=== PATIENT | male | born 1985 | race Caucasian/White ===

== ENCOUNTER 2020-07-15 10:57 | Emergency (ER) | payer BC, OTHER ==
[2020-07-15] MEDS ORDERED: Prochlorperazine 10 MG/2 ML SDV IVPUSH ONE (11:10)
[2020-07-15] MEDS ORDERED: Sodium Chloride 0.9% 10 ML Syringe FLUSH PRN (11:10)
[2020-07-15] MEDS ORDERED: Acetaminophen 500 MG Tab PO ONE (11:10)
[2020-07-15] MEDS ORDERED: Sodium Chloride 0.9% 2.5 ML Syringe FLUSH PRN (11:10)
--- NOTE | 2020-07-15 11:17 | EDM.PDOC ---
ED HPI GENERAL MEDICAL PROBLEM - General Chief Complaint: Headache Stated Complaint: INSTANT HEADACHE PAIN IN BACK OF EYE Time Seen by Provider: 07/15/20 11:03 - History of Present Illness INITIAL COMMENTS - FREE TEXT/NARRATIVE: HISTORY AND PHYSICAL: History of present illness: This 35-year-old male with a past medical history of gingivitis, dental caries, and BMI greater than 48 presents to the emergency department complaining of sudden onset headache maximal intensity that began about an hour ago. Started when he was smoking. He had a similar episode on Wednesday when he was lifting weights had a sudden onset of headache at that time and was maximal intensity and lasted about 20 minutes. It was so severe it made him feel like he was going to pass out. Today's headache has slowly decreased in pain until he has an aching type pain that is moderate behind his eyes. He did not lose consciousness. He has not vomited but he is nauseated. Denies any fevers. He is profusely diaphoretic but says he sweats a lot given his size. Review of systems: A 10-point review of systems, other than pertinent positives and negatives as stated per HPI, is otherwise negative. Past medical history: As per history of present illness and as reviewed below otherwise noncontributory. Surgical history: As per history of present illness and as reviewed below otherwise noncontributory. Social history: No reported history of drug or alcohol abuse. Family history: As per history of present illness and as reviewed below otherwise noncontributory. Physical exam: VITAL SIGNS: Reviewed. GENERAL: Appears moderately ill and diaphoretic. Complaining of a headache and keeping his eyes closed at times. HEAD: No signs of head trauma. EYES: Pupils are equal. Extraocular motions intact. EARS: Hearing grossly intact. MOUTH: Necrotizing gingivitis is present. Multiple dental caries. Equal facial symmetry. NECK: No adenopathy, no JVD. CHEST: Chest with clear breath sounds bilaterally. No wheezes, rales, or rhonchi. CARDIAC: Regular rate and rhythm. Normal S1 and S2, without murmurs, gallops, or rubs. VASCULAR: Peripheral pulses normal and equal in all extremities. ABDOMEN: Soft, without detectable tenderness. No sign of distention. No rebound or guarding, and no masses palpated. MUSCULOSKELETAL: Good range of motion of all major joints. Extremities without clubbing, cyanosis or edema. NEUROLOGIC EXAM: Alert and oriented x 3. No focal sensory or motor deficits. Speech normal. Follows commands. Walks on heels and tippy toes without difficulty. Cranial nerves II through XII are intact. PSYCHIATRIC: Mood normal. SKIN: No rash or lesions. Initial Differential Diagnosis & Plan: Differential diagnosis includes meningitis, subarachnoid hemorrhage, trauma, mass lesion, carbon dioxide of exposure, cavernous sinus venous thrombosis, and pseudotumor cerebri. There is no neck stiffness or fever to suggest meningitis. There was no evidence of carbon monoxide exposure. There is not a history of hypercoagulability or cranial nerve deficits to suggest cavernous venous thrombosis. The vision is normal and the duration is not long enough to consider pseudotumor cerebri. There is no evidence of trauma to suggest epidural hematoma or subdural hematoma. The onset was intense and severe. The [place] subarachnoid hemorrhage rule was considered and the following criteria were evaluated Age greater than or equal to 40 Neck pain or stiffness -mild Witnessed loss of consciousness - not present Onset during exertion -present and endorses this [place] headache (peaking pain within one second) -present and endorses this Limited neck flexion on exam - not present Cannot rule out subarachnoid hemorrhage with this criteria. I will obtain a head CT. No fever to suggest meningitis. I will obtain labs to evaluate for underlying occult disease. Highly suspicious for subarachnoid hemorrhage. CT. Given the patient's body habitus lumbar puncture will be quite difficult. Definitive disposition and diagnosis as appropriate pending reevaluation and review of above. headache Pain Score (Numeric/FACES): 7 - Related Data Allergies Allergy/AdvReac Type Severity Reaction Status Date / Time No Known Allergies Allergy Verified 07/15/20 11:10 Home Meds: Home Meds Chlorhexidine Gluconate 0.12% [Peridex 0.12% Rinse] 473 ml MM TID #473 ml 07/15/20 [Rx] Clindamycin HCl 300 mg PO TID 7 Days #21 capsule 07/15/20 [Rx] Cyclobenzaprine [Flexeril] 10 mg PO ASDIRECTED PRN 07/15/20 [History] Ertugliflozin Pidolate [Steglatro] 15 mg PO DAILY 07/15/20 [History] Naproxen Sodium 550 mg PO ASDIRECTED PRN 07/15/20 [History] Prochlorperazine Maleate [Compazine] 10 mg PO TID PRN #30 tablet 07/15/20 [Rx] amLODIPine [Norvasc] 5 mg PO DAILY 07/15/20 [History] metFORMIN [Glucophage XR] 1,000 mg PO DAILY 07/15/20 [History] Past Medical History - Past Health History Medical/Surgical History: Denies Medical/Surgical History Cardiovascular History: Reports: Hypertension Endocrine/Metabolic History: Reports: Obesity/BMI 30+ Social & Family History - Family History Cardiac: Reports: Hypertension, [place] Neurological: Reports: CVA - Caffeine Use Caffeine Use: Reports: None ED ROS GENERAL - Review of Systems Review Of Systems: See Below (noted) - Physical Exam Exam: See Below (noted) Course - Vital Signs Last Recorded V/S: Last Vital Signs Temp 95.1 F L 07/15/20 11:06 Pulse 119 H 07/15/20 11:06 Resp 18 07/15/20 11:06 BP 160/106 H 07/15/20 11:06 Pulse Ox 95 07/15/20 11:06 - Orders/Labs/Meds Orders: Active Orders 24 hr Category Date Time Status Head wo Cont [CT] Stat Exams 07/15/20 11:11 Taken Sodium Chloride 0.9% [Saline Flush] Med 07/15/20 11:10 Active 10 ml FLUSH ASDIRECTED PRN Sodium Chloride 0.9% [Saline Flush] Med 07/15/20 11:10 Active 2.5 ml FLUSH ASDIRECTED PRN Saline Lock Insert [OM.PC] Stat Oth 07/15/20 11:10 Ordered Medication Orders Sodium Chloride (Saline Flush) 10 ml FLUSH ASDIRECTED PRN PRN Reason: Keep Vein Open Last Admin: 07/15/20 11:15 Dose: 10 ml Documented by: LILIAN Sodium Chloride (Saline Flush) 2.5 ml FLUSH ASDIRECTED PRN PRN Reason: Keep Vein Open Last Admin: 07/15/20 11:15 Dose: 2.5 ml Documented by: LILIAN Labs: Laboratory Tests 07/15/20 07/15/20 07/15/20 Range/Units 11:16 11:44 11:44 WBC 11.00 (4.0-11.0) K/uL RBC 5.98 H (4.50-5.90) M/uL Hgb 19.1 H (13.0-17.0) g/dL Hct 53.0 H (38.0-50.0) % MCV 88.6 (80.0-98.0) fL MCH 31.9 (27.0-32.0) pg MCHC 36.0 (31.0-37.0) g/dL RDW Std Deviation 44.5 (28.0-62.0) fl RDW Coeff of Juan 14 (11.0-15.0) % Plt Count 250 (150-400) K/uL MPV 11.10 (7.40-12.00) fL Neut % (Auto) 57.1 (48.0-80.0) % Lymph % (Auto) 31.4 (16.0-40.0) % Stevens % (Auto) 9.6 (0.0-15.0) % Eos % (Auto) 1.5 (0.0-7.0) % Baso % (Auto) 0.4 (0.0-1.5) % Neut # (Auto) 6.3 H (1.4-5.7) K/uL Lymph # (Auto) 3.5 H (0.6-2.4) K/uL Stevens # (Auto) 1.1 H (0.0-0.8) K/uL Eos # (Auto) 0.2 (0.0-0.7) K/uL Baso # (Auto) 0.0 (0.0-0.1) K/uL Nucleated RBC % 0.0 /100WBC Nucleated RBCs # 0 K/uL INR 1.05 Sodium 139 (136-148) mmol/L Potassium 4.3 (3.5-5.1) mmol/L Chloride 102 (98-107) mmol/L Carbon Dioxide 26.9 (21.0-32.0) mmol/L BUN 12 (7.0-18.0) mg/dL Creatinine 1.0 (0.8-1.3) mg/dL Est Cr Clr Drug Dosing 117.63 mL/min Estimated GFR (MDRD) > 60.0 ml/min Glucose 140 H (74-106) mg/dL Calcium 9.1 (8.5-10.1) mg/dL Total Bilirubin 0.5 (0.2-1.0) mg/dL AST 22 (15-37) IU/L ALT 49 (14-63) IU/L Alkaline Phosphatase 56 (46-116) U/L Total Protein 7.4 (6.4-8.2) g/dL Albumin 4.1 (3.4-5.0) g/dL Globulin 3.3 (2.6-4.0) g/dL Albumin/Globulin Ratio 1.2 (0.9-1.6) Meds: Medications Generic Name Dose Route Start Last Admin Trade Name Freq PRN Reason Stop Dose Admin Sodium Chloride 10 ml 07/15/20 11:10 07/15/20 11:15 Saline Flush FLUSH 10 ml ASDIRECTED PRN Administration Keep Vein Open Sodium Chloride 2.5 ml 07/15/20 11:10 07/15/20 11:15 Saline Flush FLUSH 2.5 ml ASDIRECTED PRN Administration Keep Vein Open Discontinued Medications Generic Name Dose Route Start Last Admin Trade Name Freq PRN Reason Stop Dose Admin Acetaminophen 1,000 mg 07/15/20 11:10 07/15/20 11:15 Tylenol Extra Strength PO 07/15/20 11:11 1,000 mg ONETIME ONE Administration Prochlorperazine Edisylate 10 mg 07/15/20 11:10 07/15/20 11:15 Compazine IVPUSH 07/15/20 11:11 10 mg ONETIME ONE Administration - Re-Assessments/Exams Free Text/Narrative Re-Assessment/Exam: 07/15/20 12:[address] results discussed with patient. Discussed that the gold standard for subarachnoid hemorrhage rule out is a lumbar puncture. The patient needs to go get his family member/son or daughter and politely declined because he is feeling much better and does not want a spinal tap. He understands the risks, consequences and potential negative outcomes of refusing this. He has been invited to come back. He signed an AMA to release us from liability. My diagnostic impression: 1. Headache 2. History of morbid obesity 3. Trench mouth I will provide the patient with Peridex for his trench mouth and clindamycin. I will prescribe Compazine for him as an outpatient in case his headaches come back and have asked him and encouraged him to follow-up with his primary care doctor for an MRI as an outpatient. Departure - Departure Time of Disposition: 12:11 Disposition: Home, Self-Care 01 Clinical Impression: Headache, Trench mouth - Discharge Information *PRESCRIPTION DRUG MONITORING PROGRAM REVIEWED*: Not Applicable *COPY OF PRESCRIPTION DRUG MONITORING REPORT IN PATIENT VIVIAN: Not Applicable Instructions: General Headache Without Cause Referrals: Joe Foote MD [Primary Care Provider] - Forms: ED Department Discharge Additional Instructions: The following information is given to patients seen in the emergency department who are being discharged to home. This information is to outline your options for follow-up care. We provide all patients seen in our emergency department with a follow-up referral. The need for follow-up, as well as the timing and circumstances, are variable depending upon the specifics of your emergency department visit. If you don't have a primary care physician on staff, we will provide you with a referral. We always advise you to contact your personal physician following an emergency department visit to inform them of the circumstance of the visit and for follow-up with them and/or the need for any referrals to a consulting specialist. The emergency department will also refer you to a specialist when appropriate. This referral assures that you have the opportunity for follow-up care with a specialist. All of these measure are taken in an effort to provide you with optimal care, which includes your follow-up. Thank you for coming to the [facility] urgency department for your care today. It was Dr. Marcus's pleasure to take care of you. Please follow-up with your doctor. I recommend an MRI as an outpatient. You politely refused the lumbar puncture which is the gold standard test to rule out subarachnoid hemorrhage which is a type of bleeding in the brain that comes from aneurysms. If you would like this test please return. We are always happy to see you. Under all circumstances we always encourage you to contact your private physician who remains a resource for coordinating your care. When calling for follow-up care, please make the office aware that this follow-up is from your recent emergency room visit. If for any reason you are refused follow-up, please contact the [facility] Emergency Department at and asked to speak to the emergency department charge nurse. Sepsis Event Note (ED) - Evaluation Sepsis Screening Result: No Definite Risk - Focused Exam Vital Signs: Vital Signs Temp Pulse Resp BP Pulse Ox 07/15/20 11:06 95.1 F L 119 H 18 160/106 H 95 - My Orders Last 24 Hours: My Active Orders 07/15/20 11:10 Sodium Chloride 0.9% [Saline Flush] 10 ml FLUSH ASDIRECTED PRN Sodium Chloride 0.9% [Saline Flush] 2.5 ml FLUSH ASDIRECTED PRN Saline Lock Insert [OM.PC] Stat 07/15/20 11:11 Head wo Cont [CT] Stat - Assessment/Plan Last 24 Hours: My Active Orders 07/15/20 11:10 Sodium Chloride 0.9% [Saline Flush] 10 ml FLUSH ASDIRECTED PRN Sodium Chloride 0.9% [Saline Flush] 2.5 ml FLUSH ASDIRECTED PRN Saline Lock Insert [OM.PC] Stat 07/15/20 11:11 Head wo Cont [CT] Stat
[2020-07-15 12:09] LABS: BLOOD UREA NITROGEN,BUN 12 mg/dL (7.0-18.0); CARBON DIOXIDE,CO2 26.9 mmol/L (21.0-32.0); CHLORIDE,CL 102 mmol/L (98-107); GLUCOSE RANDOM 140 mg/dL (74-106); POTASSIUM,K 4.3 mmol/L (3.5-5.1); SODIUM,NA 139 mmol/L (136-148)
[2020-07-15 12:14] VITALS: BP 153/98; PULSE 101
--- NOTE | 2020-07-15 12:16 | CT ---
Head CT Technique: Multiple axial sections through the brain were obtained. Intravenous contrast was not utilized. Comparison: No prior intracranial imaging is available. Findings: Ventricles along with basal cisterns and sulci over the convexities are within normal limits for the patient's age. No abnormal parenchymal densities are seen. No evidence of intracranial hemorrhage. No extra-axial blood is seen. No midline shift or mass effect is seen. Bone window settings were reviewed which shows mucosal thickening and a retention cyst within the inferior right maxillary sinus most likely chronic. No acute calvarial finding is seen. Impression: 1. Chronic right maxillary sinus findings as noted above. 2. Nothing acute is appreciated on noncontrast head CT exam. Diagnostic code #2 This report was dictated in MDT
== END 2020-07-15 12:17 | disposition home or self-care (01) ==
LOC: MW.ED 10:57
DX: R51 Headache (principal); A69.1 Other Vincent's infections; I10 Essential (primary) hypertension; E66.9 Obesity, unspecified; Z79.899 Other long term (current) drug therapy; Z68.42 Body mass index [BMI] 45.0-49.9, adult
CPT/HCPCS: 36415; 70450; 80053; 85025; 85610; 96374; 99284; A9270; J0780

== ENCOUNTER 2021-09-25 19:54 | Emergency (ER) | payer BC ==
[2021-09-25] MEDS ORDERED: Ketorolac 15 MG/ML SDV IVPUSH ONE (20:39)
[2021-09-25] MEDS ORDERED: Dexamethasone 10 MG/ML SDV IVPUSH ONE (20:40)
--- NOTE | 2021-09-25 21:16 | CR ---
INDICATION: Sore throat, trouble breathing. TECHNIQUE: Soft tissue neck 2 view. COMPARISON: None. FINDINGS: The airway is patent and normal. The retropharyngeal soft tissues are normal. No obvious masses. The visualized cervical spine demonstrates no significant findings. There is some rotation as well as mild blur on the lateral view. Epiglottis is suboptimally seen. IMPRESSION: 1. Epiglottis is suboptimally seen. This appears mildly prominent, however this is likely exacerbated by some rotation of the anterior aspect of the neck as well as blur on the film. Suggest repeat lateral view. 2. Otherwise unremarkable soft tissue neck series. Dictated by Bruce Snow MD @ 09/25/2021 9:16:02 PM (Electronically Signed)
--- NOTE | 2021-09-25 22:07 | CR ---
INDICATION: Sore throat, difficulty breathing. Repeat lateral view recommended. TECHNIQUE: Lateral soft tissue neck performed at 9:41 p.m. Comparison: : Lateral soft tissue neck performed at 9 p.m. FINDINGS: There is abnormal thickening the epiglottis and effacement of the vallecula consistent with epiglottitis. The adenoid tissue and prevertebral soft tissues are of normal thickness. There is no evidence of gas or radiopaque foreign body within the soft tissues. The hyoid bone, cricoid, thyroid cartilages appear normal. IMPRESSION: Radiographic findings consistent with epiglottitis. Dictated by Manjeet Lama MD @ 09/25/2021 10:06:54 PM (Electronically Signed)
[2021-09-25] MEDS ORDERED: cefTRIAXone 1 GM in Premix Bag 1 BAG IV ONE (22:11)
[2021-09-25] MEDS ORDERED: Lactated Ringers 1,000 ML IV ONE (22:11)
[2021-09-25] MEDS ORDERED: methylPREDNISolone Sodium Succinate 125 MG/2 ML SDV IVPUSH ONE (22:14)
[2021-09-25] MEDS ORDERED: Sodium Chloride 0.9% Inhalation Soln 3 ML Neb INH PRN (22:21)
[2021-09-25] MEDS ORDERED: Racepinephrine 2.25% 0.5 ML Neb Soln NEB ONE (22:21)
--- NOTE | 2021-09-25 22:51 | EDM.PDOC ---
ED HPI GENERAL MEDICAL PROBLEM - General Chief Complaint: ENT Problem Stated Complaint: SOB Time Seen by Provider: 09/25/21 19:59 - History of Present Illness INITIAL COMMENTS - FREE TEXT/NARRATIVE: CHIEF COMPLAINT(S): Sore throat HISTORY OF PRESENT ILLNESS: This is a 36-year-old man with a past medical history of obesity, diabetes mellitus, hypertension who comes to the emergency department with a chief complaint of sore throat. Patient states that for the last 2 days he has been experiencing a sore throat with bilateral ear pain which she rates currently as 5-7 out of 10 without any radiation. He states that for the last couple hours he has been having difficulty breathing and is coughing because he feels like there is secretions in his throat. He denies any drooling, inability to open mouth. He denies any recent exposures. He states that it is difficult to swallow. In addition he states that his voice sounds different. He tried naproxen without any relief. There are no exacerbating factors. REVIEW OF SYSTEMS: Constitutional: Denies fever, chills. Eyes: Denies eye pain Ears, Nose, Mouth, & Throat: Positive for sore throat, trouble swallowing. Denies drooling, trismus, stridor Cardiovascular: Denies chest pain Respiratory: Denies shortness of breath Gastrointestinal: Denies Nausea, vomiting, diarrhea, hematochezia. Genitourinary: Denies hematuria Skin:Denies a rash MSK: Denies joint pain Neurological: Denies blurred vision Psychiatric: Denies depression PAST MEDICAL HISTORY: As per history of present illness and as reviewed below otherwise noncontributory. SURGICAL HISTORY: As per history of present illness and as reviewed below otherwise noncontributory. SOCIAL HISTORY: As per history of present illness and as reviewed below otherwise noncontributory. FAMILY HISTORY: As per history of present illness and as reviewed below otherwise noncontributory. EXAMINATION OF ORGAN SYSTEMS/BODY AREAS: Constitutional: Blood pressure is 177/109, heart rate 112, respiratory rate 18 with an oxygen saturation 97% on room air. Temperature 35.7 temporal General: Morbidly obese man who does not appear to be in acute distress Psychiatric: Appropriate mood and affect. Eyes: No scleral icterus or conjunctival erythema ENMT: Moist mucous membranes. No pharyngeal erythema there are no tonsillar exudates or swelling. Uvula was midline. Mild muffled voice. No drooling, trismus, stridor. No anterior posterior cervical lymphadenopathy. Cardiovascular: Regular, rate, and rhythm. No gallops, murmurs, or rubs. Bilateral upper extremity pulses symmetric and intact. No peripheral edema. No JVD. Respiratory: Lungs clear to auscultation bilaterally. No wheezes, rales, or rhonchi. Gastrointestinal: Soft, non-tender, non-distended. Normoactive bowel sounds Genitourinary: No suprapubic tenderness Musculoskeletal: Normal range of motion. Skin: No lesions or abrasions. Neurological: Alert, GCS 15 MEDICAL DECISION MAKING AND COURSE IN THE ED WITH INTERPRETATION/REVIEW OF D IAGNOSTIC STUDIES: This is a 36-year-old man with a past medical history of morbid obesity, diabetes mellitus and hypertension who comes to the emergency department with 2 days of sore throat with increased pain, sensation of pulling of secretions in the back of his throat and difficulty swallowing and sensation of breathing who is tachycardic and hypertensive but appears nontoxic. At this time we will provide the patient with Toradol, Decadron and obtain a neck soft tissue x-ray. Will obtain a strep a swab. We will reevaluate after imaging DDx: Retropharyngeal abscess, viral pharyngitis, epiglottitis The radiological images were viewed by myself along with reading the report from the radiologist. Soft tissue neck x-ray does not reveal any evidence of retropharyngeal abscess with a suboptimal view of the epiglottis. Recommend lateral x-ray repeat. After imaging I did discuss that I would like to obtain a repeat lateral x-ray. He was amenable to this plan. Patient continues to remain stable. The radiological images were viewed by myself along with reading the report from the radiologist. Repeat lateral x ray reveals acute epiglottis After imaging I did contact [facility] and spoke with Dr. Jones who recommended Decadron, clindamycin, racemic epinephrine and intubation for airway protection and ICU admission. At this time [facility] does not h ave any ICU beds available. Therefore I did discuss the plan with the patient. At this time he would like to see his prior to being intubated. I did discuss risks and benefits and consent the patient verbally. He understands that there is a possibility of needing a surgical airway. He did express verbal consent for this also. I did contact anesthesia to intubate the patient and I did contact Dr. Perez will be at bedside just in case a cricothyrotomy as needed. Given the patient's tachycardia, temperature less than 36, and known epiglottitis I did obtain blood cultures and septic work-up. We will start the patient on clindamycin. At this time we will provide the patient 1 L of lactated Ringer's bolus and start maintenance fluids. The patient's blood pressure is normal and we will reevaluate after lactic acid has been resulted. Cardiac monitoring at this time did reveal sinus tachycardia and pulse oximetry with good waveform was 98 to 97% on room air. I contacted [facility] in [place] and spoke with Dr. Mayfield who accepted the patient for transfer. Laboratory: CBC reveals a leukocytosis of 12.78 otherwise unremarkable. INR is normal. CMP reveals hyponatremia at 135, hyperglycemia 168, hypocalcemia at 8.4 and mild elevation in ALT at 69 otherwise unremarkable. Lactic acid is 1.3. Covid is negative. The patient's blood pressure continues to be normal, lactic acid is 1.3 therefore no additional fluid bolus will be administered. We will start the patient on maintenance fluids at 150 cc/h. The patient has received all appropriate medications, anesthesia and Dr. Perez are at bedside. The patient was intubated on the second attempt by anesthesia without any complications. To 100 mcg of fentanyl were provided to the patient for pain control and the patient was started on a propofol drip which will be titrated appropriately. Post intubation x-ray was obtained. DISPOSITION: Patient was transferred via fixed wing to [facility] in stable yet serious condition CONDITION: Serious PROCEDURES: Cardiac monitoring interpretation, pulse oximetry interpretation FINAL IMPRESSION(S)/DIAGNOSES: 1. Acute epiglottitis 2. Intubation secondary to airway protection Critical Care Procedure Note Authorized and performed by: Isiah Montemayor M.D. Critical Care Time: 74 minutes Due to a high probability of clinically significant, life threatening deterioration, the patient required my highest level of preparedness to intervene emergently and I personally spent this critical care time directly and personally managing the patient. This critical care time included obtaining a history, examining the patient, pulse oximetry; ordering and review of studies; arranging urgent treatment with development of a management plan; evaluation of a patients reponse to treatment; frequent assessment; and discussions with other providers. This critical care time was performed to assess and manage the high probability of imminent, life threatening deterioration that could result in multiorgan failure. It was exclusive of separate billable procedures and treating other patients. Please see MDM section and rest of the note for further information on patient assessment and treatment. Please see MDM section and rest of the note for further information on patient assessment and treatment. Isiah Montemayor M.D. Bilateral Throat Pain Score (Numeric/FACES): 7 - Related Data Allergies Allergy/AdvReac Type Severity Reaction Status Date / Time No Known Allergies Allergy Verified 09/25/21 19:55 Home Meds: Home Meds Ertugliflozin Pidolate [Steglatro] 15 mg PO DAILY 07/15/20 [History] amLODIPine [Norvasc] 5 mg PO DAILY 07/15/20 [History] metFORMIN [Glucophage XR] 1,000 mg PO DAILY 07/15/20 [History] Past Medical History - Past Health History Medical/Surgical History: Denies Medical/Surgical History HEENT History: Reports: None Cardiovascular History: Reports: Hypertension Respiratory History: Reports: None Gastrointestinal History: Reports: None Genitourinary History: Reports: None Musculoskeletal History: Reports: Back Pain, Chronic Neurological History: Reports: None Psychiatric History: Reports: None Endocrine/Metabolic History: Reports: Obesity/BMI 30+ Hematologic History: Reports: None Immunologic History: Reports: None Oncologic (Cancer) History: Reports: None Dermatologic History: Reports: None - Infectious Disease History Infectious Disease History: Reports: Chicken Pox - Past Surgical History Head Surgeries/Procedures: Reports: None HEENT Surgical History: Reports: None Cardiovascular Surgical History: Reports: None Respiratory Surgical History: Reports: None GI Surgical History: Reports: None Male Surgical History: Reports: None Endocrine Surgical History: Reports: None Neurological Surgical History: Reports: None Musculoskeletal Surgical History: Reports: None Oncologic Surgical History: Reports: None Dermatological Surgical History: Reports: None Social & Family History - Family History Family Medical History: No Pertinent Family History Cardiac: Reports: Hypertension, [place] Neurological: Reports: CVA - Tobacco Use Tobacco Use Status *Q: Former Tobacco User Used Tobacco, but Quit: Yes Month/Year Tobacco Last Used: 12 months - Caffeine Use Caffeine Use: Reports: None - Recreational Drug Use Recreational Drug Use: No ED ROS GENERAL - Review of Systems Review Of Systems: See Below ED EXAM, GENERAL - Physical Exam Exam: See Below Course - Vital Signs Last Recorded V/S: Last Vital Signs Temp 35.7 C L 09/25/21 19:56 Pulse 120 H 09/25/21 23:26 Resp 18 09/25/21 23:26 BP 180/93 H 09/25/21 23:26 Pulse Ox 100 09/25/21 23:26 - Orders/Labs/Meds Orders: Active Orders 24 hr Category Date Time Status RASS Sedation Scale [RC] ASDIRECTED Care 09/25/21 23:15 Active RT Aerosol Therapy [RC] ASDIRECTED Care 09/25/21 22:22 Active Chest 1V Frontal [CR] Stat Exams 09/25/21 22:57 Ordered Sodium Chloride 0.9% Med 09/25/21 22:21 Active 3 ml INH ASDIRECTED PRN propofoL [Diprivan 100 ML] 100 ml Med 09/25/21 23:15 Active IV TITRATE Desired Level of Sedation (RASS) [AST] Click to Edit Oth 09/25/21 23:15 Ordered Medication Orders Propofol (Diprivan 100 Ml) 100 mls @ 5.157 mls/hr IV TITRATE TELLO; Protocol Last Admin: 09/26/21 00:02 Dose: 5 mcg/kg/min, 5.157 mls/hr Documented by: STACIA Sodium Chloride (Sodium Chloride 0.9% Inhalation Soln 3 Ml Neb) 3 ml INH ASDIRECTED PRN PRN Reason: mix with racepinephrine neb Last Admin: 09/25/21 22:44 Dose: 3 ml Documented by: STACIA Labs: Laboratory Tests 09/25/21 09/25/21 09/25/21 Range/Units 19:59 19:59 20:47 WBC 12.78 H (4.0-11.0) K/uL RBC 5.48 (4.50-5.90) M/uL Hgb 16.5 (13.0-17.0) g/dL Hct 46.4 (38.0-50.0) % MCV 84.7 (80.0-98.0) fL MCH 30.1 (27.0-32.0) pg MCHC 35.6 (31.0-37.0) g/dL RDW Std Deviation 41.7 (28.0-62.0) fl RDW Coeff of Juan 14 (11.0-15.0) % Plt Count 254 (150-400) K/uL MPV 10.60 (7.40-12.00) fL Neut % (Auto) 70.2 (48.0-80.0) % Lymph % (Auto) 17.3 (16.0-40.0) % [place] % (Auto) 11.0 (0.0-15.0) % Eos % (Auto) 1.3 (0.0-7.0) % Baso % (Auto) 0.2 (0.0-1.5) % Neut # (Auto) 9.0 H (1.4-5.7) K/uL Lymph # (Auto) 2.2 (0.6-2.4) K/uL [place] # (Auto) 1.4 H (0.0-0.8) K/uL Eos # (Auto) 0.2 (0.0-0.7) K/uL Baso # (Auto) 0.0 (0.0-0.1) K/uL Nucleated RBC % 0.0 /100WBC Nucleated RBCs # 0 K/uL INR Sodium 135 L (136-148) mmol/L Potassium 3.9 (3.5-5.1) mmol/L Chloride 100 (98-107) mmol/L Carbon Dioxide 25.1 (21.0-32.0) mmol/L BUN 11 (7.0-18.0) mg/dL Creatinine 0.8 (0.8-1.3) mg/dL Est Cr Clr Drug Dosing 141.46 mL/min Estimated GFR (MDRD) > 60.0 ml/min Glucose 168 H (74-106) mg/dL Lactic Acid (0.4-2.0) mmol/L Calcium 8.4 L (8.5-10.1) mg/dL Total Bilirubin 0.5 (0.2-1.0) mg/dL AST 31 (15-37) IU/L ALT 69 H (14-63) IU/L Alkaline Phosphatase 55 (46-116) U/L Total Protein 7.8 (6.4-8.2) g/dL Albumin 3.8 (3.4-5.0) g/dL Globulin 4.0 (2.6-4.0) g/dL Albumin/Globulin Ratio 0.9 (0.9-1.6) SARS-CoV-2 RNA (STEPHANIE) (NEGATIVE) Group A Strep (PCR) NOT DETECTED (NOT DETECT) 09/25/21 09/25/21 09/25/21 Range/Units 22:40 22:40 22:54 WBC (4.0-11.0) K/uL RBC (4.50-5.90) M/uL Hgb (13.0-17.0) g/dL Hct (38.0-50.0) % MCV (80.0-98.0) fL MCH (27.0-32.0) pg MCHC (31.0-37.0) g/dL RDW Std Deviation (28.0-62.0) fl RDW Coeff of Juan (11.0-15.0) % Plt Count (150-400) K/uL MPV (7.40-12.00) fL Neut % (Auto) (48.0-80.0) % Lymph % (Auto) (16.0-40.0) % [place] % (Auto) (0.0-15.0) % Eos % (Auto) (0.0-7.0) % Baso % (Auto) (0.0-1.5) % Neut # (Auto) (1.4-5.7) K/uL Lymph # (Auto) (0.6-2.4) K/uL [place] # (Auto) (0.0-0.8) K/uL Eos # (Auto) (0.0-0.7) K/uL Baso # (Auto) (0.0-0.1) K/uL Nucleated RBC % /100WBC Nucleated RBCs # K/uL INR 1.00 Sodium (136-148) mmol/L Potassium (3.5-5.1) mmol/L Chloride (98-107) mmol/L Carbon Dioxide (21.0-32.0) mmol/L BUN (7.0-18.0) mg/dL Creatinine (0.8-1.3) mg/dL Est Cr Clr Drug Dosing mL/min Estimated GFR (MDRD) ml/min Glucose (74-106) mg/dL Lactic Acid 1.3 (0.4-2.0) mmol/L Calcium (8.5-10.1) mg/dL Total Bilirubin (0.2-1.0) mg/dL AST (15-37) IU/L ALT (14-63) IU/L Alkaline Phosphatase (46-116) U/L Total Protein (6.4-8.2) g/dL Albumin (3.4-5.0) g/dL Globulin (2.6-4.0) g/dL Albumin/Globulin Ratio (0.9-1.6) SARS-CoV-2 RNA (STEPHANIE) NEGATIVE (NEGATIVE) Group A Strep (PCR) (NOT DETECT) Meds: Medications Generic Name Dose Route Start Last Admin Trade Name Freq PRN Reason Stop Dose Admin Propofol 100 mls @ 5.157 mls/hr 09/25/21 23:15 09/26/21 00:02 Diprivan 100 Ml IV 5 mcg/kg/min TITRATE TELLO 5.157 mls/hr Administration Protocol 5 MCG/KG/MIN Sodium Chloride 3 ml 09/25/21 22:21 09/25/21 22:44 Sodium Chloride 0.9% Inhalation Soln 3 Ml Neb INH 3 ml ASDIRECTED PRN Administration mix with racepinephrine neb Discontinued Medications Generic Name Dose Route Start Last Admin Trade Name Freq PRN Reason Stop Dose Admin Dexamethasone 10 mg 09/25/21 20:40 09/25/21 20:52 Dexamethasone 10 Mg/Ml Sdv IVPUSH 09/25/21 20:41 10 mg ONETIME ONE Administration Fentanyl Confirm 09/25/21 23:20 09/25/21 23:49 Fentanyl 50 Mcg/Ml Sdv Administered 09/25/21 23:21 Not Given Dose 100 mcg .ROUTE .STK-MED ONE Fentanyl 100 mcg 09/25/21 23:46 09/25/21 23:48 Fentanyl 50 Mcg/Ml Sdv IVPUSH 09/25/21 23:47 100 mcg ONETIME ONE Administration Fentanyl Confirm 09/25/21 23:55 Fentanyl 50 Mcg/Ml Sdv Administered 09/25/21 23:56 Dose 100 mcg .ROUTE .STK-MED ONE Glycopyrrolate Confirm 09/25/21 23:06 Glycopyrrolate 0.2 Mg/Ml Sdv Administered 09/25/21 23:07 Dose 0.2 mg .ROUTE .STK-MED ONE Lactated Ringer's 1,000 mls @ 999 mls/hr 09/25/21 22:11 09/25/21 22:36 Ringers, Lactated IV 09/25/21 23:11 999 mls/hr .BOLUS ONE Administration Ceftriaxone Sodium/Dextrose 1 50 mls @ 100 mls/hr 09/25/21 22:11 09/25/21 22:46 gm/ Premix IV 09/25/21 22:40 Not Given ONETIME ONE Clindamycin Phosphate 300 mg/ 52 mls @ 100 mls/hr 09/25/21 22:17 09/25/21 23:07 Sodium Chloride IV 09/25/21 22:48 Not Given ONETIME ONE Clindamycin Phosphate 300 mg/ 50 mls @ 150 mls/hr 09/25/21 23:00 09/25/21 23:07 Premix IV 09/25/21 23:19 150 mls/hr ONETIME ONE Administration Propofol Confirm 09/25/21 23:17 Diprivan 100 Ml Administered 09/25/21 23:18 Dose 100 mls @ as directed .ROUTE .STK-MED ONE Propofol Confirm 09/25/21 23:21 Diprivan 100 Ml Administered 09/25/21 23:22 Dose 100 mls @ as directed .ROUTE .STK-MED ONE Ketamine HCl Confirm 09/25/21 23:05 Ketamine 500 Mg/10 Ml Mdv Administered 09/25/21 23:06 Dose 500 mg .ROUTE .STK-MED ONE Ketorolac Tromethamine 15 mg 09/25/21 20:39 09/25/21 20:52 Ketorolac 15 Mg/Ml Sdv IVPUSH 09/25/21 20:40 15 mg ONETIME ONE Administration Lidocaine Confirm 09/25/21 23:06 Lidocaine 2% 5 Ml Sdv Administered 09/25/21 23:07 Dose 5 ml .ROUTE .STK-MED ONE Lidocaine HCl Confirm 09/25/21 22:55 09/25/21 23:09 Lidocaine 2% Viscous Solution 15 Ml Cup Administered 09/25/21 22:56 Not Given Dose 15 ml .ROUTE .STK-MED ONE Lidocaine HCl Confirm 09/25/21 23:06 Lidocaine 1% 5 Ml Sdv Administered 09/25/21 23:07 Dose 5 ml .ROUTE .STK-MED ONE Lidocaine HCl 15 ml 09/25/21 23:08 09/25/21 23:10 Lidocaine 2% Viscous Solution 15 Ml Cup PO 09/25/21 23:09 15 ml ONETIME ONE Administration Methylprednisolone Sodium Succinate 125 mg 09/25/21 22:14 09/25/21 22:36 Methylprednisolone Sodium Succinate 125 Mg/2 Ml Sdv IVPUSH 09/25/21 22:15 125 mg ONETIME ONE Administration Racepinephrine 0.5 ml 09/25/21 22:21 09/25/21 22:44 Racepinephrine 2.25% 0.5 Ml Neb Soln NEB 09/25/21 22:22 0.5 ml ONETIME ONE Administration Succinylcholine Chloride Confirm 09/25/21 23:07 Succinylcholine Chloride 200 Mg/10 Ml Syr Administered 09/25/21 23:08 Dose 200 mg .ROUTE .STK-MED ONE Departure - Departure Time of Disposition: 00:05 Disposition: DC/Tfer to Acute Hospital 02 Condition: Serious Clinical Impression: Epiglottitis - Discharge Information Referrals: Joe Foote MD [Primary Care Provider] - Forms: ED Department Discharge Sepsis Event Note (ED) - Evaluation Sepsis Screening Result: No Definite Risk - Focused Exam Vital Signs: Vital Signs Temp Pulse Resp BP Pulse Ox 09/25/21 23:26 120 H 18 180/93 H 100 09/25/21 23:11 115 H 20 182/120 H 95 09/25/21 22:50 118 H 20 192/103 H 98 09/25/21 19:56 35.7 C L 112 H 18 177/109 H 97 - My Orders Last 24 Hours: My Active Orders 09/25/21 22:21 Sodium Chloride 0.9% 3 ml INH ASDIRECTED PRN 09/25/21 22:22 RT Aerosol Therapy [RC] ASDIRECTED 09/25/21 22:57 Chest 1V Frontal [CR] Stat 09/25/21 23:15 RASS Sedation Scale [RC] ASDIRECTED propofoL [Diprivan 100 ML] 100 ml IV TITRATE Desired Level of Sedation (RASS) [AST] Click to Edit - Assessment/Plan Last 24 Hours: My Active Orders 09/25/21 22:21 Sodium Chloride 0.9% 3 ml INH ASDIRECTED PRN 09/25/21 22:22 RT Aerosol Therapy [RC] ASDIRECTED 09/25/21 22:57 Chest 1V Frontal [CR] Stat 09/25/21 23:15 RASS Sedation Scale [RC] ASDIRECTED propofoL [Diprivan 100 ML] 100 ml IV TITRATE Desired Level of Sedation (RASS) [AST] Click to Edit
[2021-09-25 22:53] LABS: BLOOD UREA NITROGEN,BUN 11 mg/dL (7.0-18.0); CARBON DIOXIDE,CO2 25.1 mmol/L (21.0-32.0); CHLORIDE,CL 100 mmol/L (98-107); GLUCOSE RANDOM 168 mg/dL (74-106); POTASSIUM,K 3.9 mmol/L (3.5-5.1); SODIUM,NA 135 mmol/L (136-148)
[2021-09-25] MEDS ORDERED: Lidocaine 2% Viscous Solution 15 ML Cup ONE (22:55)
[2021-09-25] MEDS ORDERED: Clindamycin Phosphate in D5W 300 MG in Premix Bag 1 BAG IV ONE ×2 (23:00)
[2021-09-25] MEDS ORDERED: Ketamine 500 mg/10 ML MDV ONE (23:05)
[2021-09-25] MEDS ORDERED: Lidocaine 2% 5 ML SDV ONE (23:06)
[2021-09-25] MEDS ORDERED: Glycopyrrolate 0.2 MG/ML SDV ONE (23:06)
[2021-09-25] MEDS ORDERED: Lidocaine 2% Viscous Solution 15 ML Cup PO ONE (23:08)
[2021-09-25] MEDS ORDERED: propofoL 100 ML IV SCH (23:15)
[2021-09-25] MEDS ORDERED: propofoL 0 ML ONE (23:17)
[2021-09-25] MEDS ORDERED: fentaNYL 50 MCG/ML SDV ONE ×2 (23:20→23:55)
[2021-09-25] MEDS ORDERED: propofoL 100 ML ONE (23:21)
[2021-09-25] MEDS ORDERED: Propofol 200 MG/20 ML SDV IVPUSH ONE ×5 (23:35→23:54)
[2021-09-25] MEDS ORDERED: fentaNYL 50 MCG/ML SDV IVPUSH ONE (23:46)
[2021-09-26] MEDS ORDERED: fentaNYL 50 MCG/ML SDV IVPUSH ONE ×2 (00:03→00:57)
[2021-09-26] MEDS ORDERED: Propofol 200 MG/20 ML SDV IVPUSH ONE (00:05)
[2021-09-26] MEDS ORDERED: fentaNYL/Normal Saline 2,500 MCG in Premix Bag 1 BAG IV SCH (00:15)
--- NOTE | 2021-09-26 00:16 | PCM.SN.2 ---
- Free Text/Narrative Note: Called to ER at 2221 for intubation, arrived at 2238. patient preoxygenated with simple mask, given .2 mg Robinul, patient gargled viscous lidocaine and was administered atomized lidociane. 100 mg ketamine given in 20 mg doses, airway examined using GlideScope while patient breathing. visualization of cords confirmed, pushed 200 mg succinylcholine, bagged patient, intubated with bougie and 7.0 ETT. atraumatic intubation, dentition unchanged.
[2021-09-26] MEDS ORDERED: fentaNYL/Normal Saline 250 ML ONE (00:17)
[2021-09-26 00:35] VITALS: BP 139/91; PULSE 117
--- NOTE | 2021-09-26 00:35 | CR ---
Indication: Line placement Technique: Chest 1 view Comparison: None Findings/Impression: Cardiovascular and mediastinum: Endotracheal tube with tip at the distal trachea. Enteric tube extends below the hemidiaphragm. Normal heart size. Lungs and pleural space: Low lung volumes without pleural effusion or pneumothorax. Mild pulmonary cephalization with slight patchy basilar opacities, likely atelectasis. Bones and soft tissues: No acute findings. Dictated by Bruce Snow MD @ 09/26/2021 12:34:24 AM (Electronically Signed)
[2021-09-26] MEDS ORDERED: propofoL 100 ML ONE (00:46)
[2021-09-26] MEDS ORDERED: propofoL 100 ML IV SCH (01:30)
[2021-09-26] MEDS: fentaNYL 50 MCG/ML SDV IVPUSH ONE ×2 (22:49→22:51)
== END 2021-09-26 01:30 ==
LOC: MW.ED 19:54
DX: J05.10 Acute epiglottitis without obstruction (principal); E11.9 Type 2 diabetes mellitus without complications; I10 Essential (primary) hypertension; E66.9 Obesity, unspecified; Z68.43 Body mass index [BMI] 50.0-59.9, adult; Z79.84 Long term (current) use of oral hypoglycemic drugs; Z20.822 Contact with and (suspected) exposure to COVID-19
CPT/HCPCS: 31500; 36415; 43752; 51702; 70360; 71045; 80053; 83605; 85025; 85610; 87635; 87651; 94640; 96374; 96375; 99285; A9270; J0330; J1100; J1885; J2704; J2930; J3010; J3490; J7120; U0002

== ENCOUNTER 2025-01-12 11:18 | Emergency (ER) | payer BC | END 2025-01-12 13:05 | disposition left against medical advice (07) | LOC: MW.ED 11:18 | DX: Z53.21 Procedure and treatment not carried out due to patient leaving prior to being seen by health care provider (principal) | CPT/HCPCS: 99284 ==

== ENCOUNTER 2025-01-12 21:55 | Emergency (ER) | payer OTHER, BC ==
[2025-01-13 00:55] LABS: BASOPHILS ABSOLUTE AUTO 0.07 K/uL (0.00-0.20); BASOPHILS PERCENT AUTO 0.8 % (0.0-1.0); EOSINOPHILS ABSOLUTE AUTO 0.15 K/uL (0.00-0.45); EOSINOPHILS PERCENT AUTO 1.7 % (0.0-6.0); HEMATOCRIT 42.2 % (42.0-52.0); HEMOGLOBIN 15.1 g/dL (14.0-18.0); IMMATURE GRAN ABSOLUTE AUTO 0.02 K/uL (0.00-0.05); IMMATURE GRAN PERCENT AUTO 0.2 % (0.0-0.4); LYMPHOCYTES ABSOLUTE AUTO 3.39 K/uL (1.00-4.80); LYMPHOCYTES PERCENT AUTO 38.3 % (24.0-44.0); MEAN CORPUSCULAR HEMOGLOBIN 30.3 pg (28.0-32.0); MEAN CORPUSCULAR HGB CONC 35.8 g/dL (32.0-36.0); MEAN CORPUSCULAR VOLUME 84.6 fL (83.0-99.0); MEAN PLATELET VOLUME 10.7 fL (9.4-12.4); MONOCYTES ABSOLUTE AUTO 0.85 K/uL (0.00-0.80); MONOCYTES PERCENT AUTO 9.6 % (0.0-8.0); NEUTROPHILS ABSOLUTE AUTO 4.37 K/uL (1.80-7.70); NEUTROPHILS PERCENT AUTO 49.4 % (41.0-71.0); PLATELET COUNT,PLT 236 K/uL (150-400); RED BLOOD CELL COUNT 4.99 M/uL (4.52-5.90); WHITE BLOOD CELL COUNT,WBC 8.85 K/uL (3.9-11.3)
[2025-01-13 01:19] LABS: A/G RATIO 1.2 (0.9-1.6); ALBUMIN 3.8 g/dL (3.4-5.0); BILIRUBIN TOTAL 0.4 mg/dL (0.2-1.0); CALCIUM 8.9 mg/dL (8.5-10.1); CARBON DIOXIDE,CO2 27.5 mmol/L (21.0-32.0); CREATININE 0.8 mg/dL (0.8-1.3); EST CRCL DRUG DOSING (CG) 137.42 mL/min; POTASSIUM,K 4.5 mmol/L (3.5-5.1); PROTEIN TOTAL,TP 6.9 g/dL (6.4-8.2)
[2025-01-13] MEDS: Iopamidol 755 MG/ML 500 ML Multipack Bottle IVPUSH ONE (01:47)
[2025-01-13] MEDS: Ketorolac 30 MG/ML SDV IVPUSH ONE (01:54)
[2025-01-13] MEDS: Ondansetron 4 MG/2 ML SDV IVPUSH ONE (01:54)
[2025-01-13] MEDS: Morphine 2 MG/ML SYRINGE IVPUSH ONE (01:55)
[2025-01-13 01:59] VITALS: PULSE 100
[2025-01-13 02:45] VITALS: BP 149/94
== END 2025-01-13 02:45 | disposition home or self-care (01) ==
LOC: MW.ED 21:55
DX: S29.019A Strain of muscle and tendon of unspecified wall of thorax, initial encounter (principal); I10 Essential (primary) hypertension; E66.9 Obesity, unspecified; Z79.84 Long term (current) use of oral hypoglycemic drugs; Z79.899 Other long term (current) drug therapy; Z75.8 Other problems related to medical facilities and other health care; Z68.41 Body mass index [BMI] 40.0-44.9, adult; V89.2XXA Person injured in unspecified motor-vehicle accident, traffic, initial encounter
CPT/HCPCS: 36415; 71260; 74177; 80053; 85025; 96374; 96375; 99284; J1885; J2270; J2405; Q9967